=== PATIENT | female | born 1980 | race Asian ===

== ENCOUNTER 2025-05-10 08:22 | Emergency (ER) | payer MEDICAID, OTHER ==
[~2025-05-10] VITALS: Ht 170.2 cm; Wt 120.5 kg
[~2025-05-10 08:22] MED LIST: VITAMIN
[2025-05-10 08:27] VITALS: BP 135/74; PULSE 87; RESP 18; TEMP 98.4; O2SAT 99
[2025-05-10] MEDS ORDERED: IBUP-1492 PO (09:02)
[2025-05-10] MEDS ORDERED: ACET-3385 PO (09:02)
[2025-05-10] MEDS: KETOROLAC TROMETHAMINE 30 MG/ML VIAL IM ONE (09:07)
== END 2025-05-10 09:18 | disposition home or self-care (01) ==
LOC: EMS 08:23
DX: M25.561 Pain in right knee (principal); G89.29 Other chronic pain; F41.9 Anxiety disorder, unspecified; Z79.899 Other long term (current) drug therapy; Z87.891 Personal history of nicotine dependence
CPT/HCPCS: 99283; 73562; 96372; J1885